=== PATIENT | female | born 1955 | race Caucasian/White ===

== ENCOUNTER → 2017-05-11 12:09 | Outpatient (CLI) | payer BC, MEDICARE, SELFPAY ==
--- NOTE | 2017-05-11 13:00 | MM_ITS ---
MM Dig screening mamm BI w/CAD CAD Screening COMPARISON: Digital mammograms 01/28/2016 and additional views right breast 02/13/2016 and digital right mammogram 10/25/2016 INDICATION: There is a history of breast cancer patient's paternal aunt diagnosed after menopause. TECHNIQUE: Standard CC and MLO images were obtained. R2 CAD reviewed. FINDINGS: Moderate heterogenic fibroglandular densities are seen in the central portions of both breast. Previous ultrasound examinations of each breast and shown multiple cystic lesions. The dominant cystic lesion at approximately 1:00 position right breast seen on the previous exam October 2016 has shown interval decrease in size. There is a persistent density just deep to the nipple the right breast which was noted previously and this may have shown interval increase in size. There is a benign-appearing calcification left breast. There are no suspicious microcalcifications. Ultrasound right breast was performed same date confirming interval decrease in size of the septated cyst near the 1:00 position near the nipple. There are several other benign-appearing cyst within the breast along with a normal-appearing node in the axilla. IMPRESSION: Heterogenic breast density consistent with fibrocystic change with interval decrease in size of the dominant cyst right breast recommend the patient continue with yearly screening mammography BI-RADS Category: 2 Benign Finding(s) RECOMMENDED FOLLOW-UP: 1YR - 1 YEAR FOLLOW-UP (A letter has been sent to the patient regarding results of the study.)
--- NOTE | 2017-05-11 14:00 | US_ITS ---
US breast RT complete COMPARISON: Ultrasound right breast 10/25/2016 HISTORY: Follow-up known cystic lesions TECHNIQUE: Targeted ultrasound right breast FINDINGS: The oval cystic lesion with partial septation near the 1:00 position has shown interval decrease in size compared to the previous exam now measuring 0.9 0.8 x 0.5 cm. The other oval hypoechoic cystic lesion at the 9 to 10:00 position again shows some internal echoes likely debris measures 0.7 x 0.3 0.5 cm basically unchanged in size and appearance from previous exam. There is a tiny oval hypoechoic cystic lesion at the 11:00 position measuring 0.6 by point to 5.5 cm. There is a benign-appearing cystic lesion just deep to the nipple corresponding in size and location to the density seen on the mammogram measuring 0.6 x 0.4 x 0.6 cm.. There is a normal-appearing node in the axilla. IMPRESSION: Diffuse heterogenic echogenicity consistent with fibrocystic change with cystic lesions as described and with no suspicious solid lesions identified. Recommend the patient continue with yearly screening mammography.
== END ==
PROVIDERS: Family Provider Family Medicine; PCP Family Medicine; Visit Provider Family Medicine
DX: N60.01 Solitary cyst of right breast (principal); Z12.31 Encounter for screening mammogram for malignant neoplasm of breast
CPT/HCPCS: 76641; 77067

== ENCOUNTER → 2017-11-14 12:12 | Outpatient (CLI) | payer BC, MEDICARE, SELFPAY | PROVIDERS: PCP Family Medicine; Visit Provider Family Medicine | DX: R55 Syncope and collapse (principal) | CPT/HCPCS: 93225; 93226 ==

== ENCOUNTER → 2017-11-15 13:20 | Outpatient (CLI) | payer BC, MEDICARE, SELFPAY ==
[2017-11-15 17:00] LABS: Blood Urea Nitrogen 11 mg/dL (7-18); Estimated Glomerular Filt Rate 46 ml/min (>60); GFR (African American) 55 ML/MIN (>60)
== END ==
PROVIDERS: PCP Family Medicine; Visit Provider Family Medicine
DX: D35.2 Benign neoplasm of pituitary gland (principal)
CPT/HCPCS: 36415; 82565; 84520

== ENCOUNTER → 2017-11-18 07:58 | Outpatient (CLI) | payer BC, MEDICARE, SELFPAY ==
--- NOTE | 2017-11-18 08:36 | MR_ITS ---
MR head/brain wo/w con Ordering Physician: Rita Arevalo MD Patient Age: 62 years: Female HISTORY: ITS.REASON: PITUITARY MICROADENOMA TECHNIQUE pre and postcontrast imaging of brain.. Routine Precontrast multiplanar imaging includes FLAIR, T1, T2 weighted images along with axial diffusion/ADC imaging performed on 1.5 T. Siemens, MRI. Thin sections through the pituitary following dynamic contrast enhancement. The provide excellent visualization of pituitary. Thereafter Postcontrast imaging entire brain performed.. 13mL ProHance used for the postcontrast images . COMPARISON :MRI brain including pituitary thin sections; from Dec 2016 & Apr 2016 FINDINGS no no mass lesion We again see view a few scattered small high signal white matter foci cerebral hemispheres bilateral. These are not changed appreciably since December nor April 2016 MR brain.. no territorial infarct. The posterior fossa appears satisfactory. CP angles are clear. IACs symmetric with cranial nerve VII and VIII appear normal as it courses to the respective IACs. Mastoid air cells are well-developed and clear. Paranasal sinuses are well-developed with only some borderline mucosal thickening at ethmoid air cells. Dynamic thin section coronal and sagittal images are obtained of the pituitary pre and postcontrast Pituitary shows no discrete change since previous 2017 studies.. These detail images Pituitary Thin section pre& post enhanced images, once again showing an mildly enlarged pituitary gland measuring up to 15 mm transverse X9 .7 mm height X9 mm AP measurement unchanged since previous exam measured from same spot. . Mild convex superior margin of the pituitary gland is again noted and stable;.. The central aspect of upward bulging pituitary abuts the infra aspect of theoptic chiasm and medial aspect and proximal aspect of the optic nervesbilaterally without significant displacement and with no significant change. Again note two small stable area of decreased enhancement at posterior aspect pituitary gland on the dynamic thin section post contrast images specifically for pituitary.. The most evident microadenoma is seen posterior to the left Measuring 4 mm transverse x 2.2 mm... Also note a second small 2 mm less enhancing focus/microadenoma at midline posteriorly slightly more superior which reflect either a second tiny microadenoma, or dogleg extension of the area noted above. These this is best seen on dynamic postcontrast thin section coronal image 4/sagittal postcontrast image 7..These microadenomas show no definite change since Apr 2016. (The detail and resolution of these small macro adenomas was better on the Apr 2016 study, than December-thus used for comparison) . On this thin section coronal image 4 initially question more evident microadenoma to the left at posterior pituitary could be possibly subtle incrementally larger but this is not confirmed on other images and thus I believe is merely a feature of slightly different slice location/sampling. However I would recommend again follow-up in 9 months to again further evaluate particularly if there should be any progressive symptoms Paranasal sinuses are clear. Orbits unremarkable IMPRESSION : 1. Overall no significant change in the mildly enlarged pituitary and two small stable microadenomas at posterior pituitary. . microadenoma Posterior left pituitary measuring up to 4 mm; & the other at midline measuring 2.2 mm. .. No definitive change since since Apr 2016 The mildly enlarged pituitary does bulge upward & again seen to slightly abut the inferior aspect of the optic chiasm & proximal aspect of the optic nerves medially as before.. This is unchanged as well 2.. Stable scattered white matter high signal foci most likely due to microan
--- NOTE | 2017-11-18 10:13 | HMH.ITSHM ---
TOPIRAMATE LORAZEPAM TROKENDI HYDROCHLOROTHIAZIDE-TRIAMTERENE METOPROLOL SUCCINATE POTASSIUM CHLORIDE PLVIX ALENDRONATE SUMATRIPTAN TIZANIDINE MYRBETRIQ
== END ==
PROVIDERS: Family Provider Family Medicine; PCP Family Medicine; Visit Provider Family Medicine
DX: D35.2 Benign neoplasm of pituitary gland (principal)
CPT/HCPCS: 70553; A9576

== ENCOUNTER → 2017-11-29 14:15 | Outpatient (CLI) | payer BC, MEDICARE, SELFPAY | PROVIDERS: PCP Family Medicine; Visit Provider Nurse Practitioner Family | DX: Z11.9 Encounter for screening for infectious and parasitic diseases, unspecified (principal); W57.XXXD Bitten or stung by nonvenomous insect and other nonvenomous arthropods, subsequent encounter | CPT/HCPCS: 36415; 86618 ==

== ENCOUNTER → 2017-12-19 07:32 | Outpatient (CLI) | payer BC, MEDICARE, SELFPAY ==
--- NOTE | 2017-12-19 07:33 | CA_ITS ---
PROCEDURE: 2-D M-mode and color Doppler study INDICATIONS FOR THE TEST: Chest pain+ COPD Heart Murmur Tobacco Smoking+ Palpitations+ Fatigue+ Syncope+ Edema Hypertension+Diabetes Mellitus Rheumatic Fever SOB+MARTINEZ+Obesity Hyperlipidemia Family History HD+ Additional History dizziness, hx of TIA PATIENT INFORMATION HEIGHT: 63 WEIGHT: 144 GENDER: Female B/P:149/83 2-D/M-MODE INTERPRETATION: 2-D MEASUREMENTS OBSERVED VALUES IN CMS Right Ventricular Dimension (RVDd) 2.2 Interventricular Septum (Thickness)(IVsd) 0.7 Left Ventricular Internal Dimensions(LVIDd) 3.0 Left Ventricular Posterior Wall (Thickness)(LVPWd) 0.8 Aortic Root 2.6 Aortic Cusp Separation 1.7 Left Atrial Dimensions (LAD) 3.0 2D 1. Left atrium is qualitatively mildly enlarged, left ventricle is normal size, there is no concentric left ventricular hypertrophy, visually estimated ejection fraction 55% with no regional wall motion abnormality. 2. The right atrium and right ventricle are normal size and contractility. 3. The aortic valve is minimally thickened and fibrosed. 4. The mitral and tricuspid valve are grossly normal. 5. The pulmonic valve is poorly visualized. 6. No significant pericardial effusion noted. DOPPLER INTERROGATION: Doppler interrogation of the aortic, mitral and tricuspid valvular presence of mild mitral and tricuspid regurgitation, tricuspid regurgitation jet velocity is insufficient for calculation of the right ventricular systolic pressure, grade 1 diastolic dysfunction seen without tissue Doppler evidence of raised left atrial pressure. CONCLUSION: 1. Normal left ventricular size, preserved left ventricular systolic function, visually estimated ejection fraction of 55% with no regional wall motion abnormality, grade 1 diastolic dysfunction seen without tissue Doppler evidence of raised left atrial pressure. 2. Mild mitral and tricuspid regurgitation 3. No significant pericardial effusion noted.
--- NOTE | 2017-12-19 07:33 | CI_ITS ---
Cerebrovascular Exam Indications: 785.9 Bruit. IMPRESSIONS 1. The bilateral vertebral arteries are patent with normal antegrade flow. 2. Study suggests less than 20% stenosis involving the right internal carotid artery and the left internal carotid artery. No change from the study of 26-Feb-2013. Carotid duplex study. Complete study and Doppler flow study including spectral analysis, color and gomez scale imaging. Location: Vascular laboratory. Patient status: Outpatient. Tables: Arterial flow: + +--------+--------+ Location V sys V ed + +--------+--------+ Right CCA - proximal 78.6cm/s 24.4cm/s + +--------+--------+ Right CCA - distal 62.9cm/s 21.2cm/s + +--------+--------+ Right ECA 71.5cm/s -------- + +--------+--------+ Right ICA - proximal 62.9cm/s 25.1cm/s + +--------+--------+ Right ICA - mid 72.3cm/s 29.1cm/s + +--------+--------+ Right ICA - distal 79.4cm/s 36.9cm/s + +--------+--------+ Right vertebral 38.5cm/s -------- + +--------+--------+ Left CCA - proximal 85.6cm/s 30.6cm/s + +--------+--------+ Left CCA - distal 64.4cm/s 19.6cm/s + +--------+--------+ Left ECA 51.1cm/s -------- + +--------+--------+ Left ICA - proximal 51.9cm/s 23.6cm/s + +--------+--------+ Left ICA - mid 57.4cm/s 25.1cm/s + +--------+--------+ Left ICA - distal 53.4cm/s 22.8cm/s + +--------+--------+ Left vertebral 38.5cm/s -------- + +--------+--------+ Velocity ratios: + + + + + + Right, V sys Right, V ed Left, V sys Left, V ed + + + + + + Max ICA/dist CCA 1.26 1.74 0.89 1.28 + + + + + + (Report amended ) Electronically signed by: Henry Pinto [id number]
== END ==
PROVIDERS: Family Provider Family Medicine; PCP Family Medicine; Visit Provider Internal Medicine
DX: R42 Dizziness and giddiness (principal); Z86.73 Personal history of transient ischemic attack (TIA), and cerebral infarction without residual deficits; D35.2 Benign neoplasm of pituitary gland; I10 Essential (primary) hypertension; I20.9 Angina pectoris, unspecified; I95.9 Hypotension, unspecified; R00.2 Palpitations; R06.09 Other forms of dyspnea; R55 Syncope and collapse; R94.31 Abnormal electrocardiogram [ECG] [EKG]
CPT/HCPCS: 93306; 93880

== ENCOUNTER → 2018-03-31 11:08 | Outpatient (CLI) | payer BC, MEDICARE, SELFPAY ==
[2018-03-31 13:32] LABS: C-Reactive Protein < 0.2 mg/L (0.0-0.9)
[2018-03-31 13:58] LABS: Erythrocyte Sedimentation Rate 10 mm/hr (0-30)
== END ==
PROVIDERS: PCP Family Medicine; Visit Provider Ophthalmology
DX: D35.2 Benign neoplasm of pituitary gland (principal)
CPT/HCPCS: 36415; 85651; 86140

== ENCOUNTER → 2018-05-15 08:16 | Outpatient (CLI) | payer BC, MEDICARE, SELFPAY ==
[2018-05-15 09:20] LABS: Blood Urea Nitrogen 17 mg/dL (7-18); Creatinine,Serum 1.09 mg/dL (0.55-1.02); Estimated Glomerular Filt Rate 51 ml/min (>60); GFR (African American) 62 ML/MIN (>60)
== END ==
PROVIDERS: Visit Provider Neurological Surgery
DX: R79.89 Other specified abnormal findings of blood chemistry (principal)
CPT/HCPCS: 36415; 82565; 84520

== ENCOUNTER → 2018-05-17 10:27 | Outpatient (CLI) | payer BC, MEDICARE, SELFPAY ==
--- NOTE | 2018-05-17 10:30 | MR_ITS ---
MR head/brain wo/w con HISTORY: Severe headaches, pituitary macroadenoma ITS.REASON: PITUITARY MACROADENOMA ORDERING PHYSICIAN: Ryan Burciaga PATIENT AGE: 63 years Comparison: 11/18/2017 TECHNIQUE: Standard multiplanar multiecho sequences are performed without and with 12 mL ProHance IV. FINDINGS: No midline shift, mass effect, intracranial hemorrhage, or hydrocephalus. No evidence of acute infarction. There are few T2 scattered white matter hyperintensities which are nonspecific consistent with ischemic gliotic change from microvascular disease. The cerebellopontine angles, cerebellum, and brainstem are unremarkable. Pre- and post dynamic thin section enhanced images are obtained of the pituitary gland. There is once again noted mildly enlarged pituitary gland 10 x 9 x 12 mm. Small area of delayed enhancement noted in the left lobe of the pituitary gland posteriorly and inferiorly at 4 mm consistent with a microadenoma unchanged. Additional 2 mm focus of delayed enhancement in the central aspect of the pituitary as before suggesting an additional small microadenoma unchanged. Large pituitary gland does of but the inferior aspect of the optic chiasm centrally without significant compression or displacement. Incidental note is made of mild mucosal thickening of the right maxillary sinus and of the ethmoid sinuses. IMPRESSION: 1. Overall no change with no acute finding compared to 11/18/2017. 2. Enlarged pituitary gland with 2 microadenomas once again noted unchanged. The pituitary gland does abut the optic chiasm centrally and inferiorly but without significant displacement or compression.
== END ==
PROVIDERS: PCP Family Medicine; Visit Provider Neurological Surgery
DX: D35.2 Benign neoplasm of pituitary gland (principal)
CPT/HCPCS: 70553; A9576

== ENCOUNTER → 2018-08-09 10:15 | Outpatient (CLI) | payer BC, MEDICARE, SELFPAY ==
--- NOTE | 2018-08-09 10:18 | MM_ITS ---
MM Dig screening mamm BI w/CAD ORDERING PHYSICIAN : Rita Arevalo MD PATIENT AGE: 63 years GENDER: Female COMPARISON: April 2017 ; January 2016 a But also March 2011 outside mammogram study from [place] INDICATION: .: Routine screening mammogram. Period. No hormones. No new complaints. Family history.. Paternal aunt with breast cancer TECHNIQUE: Standard CC and MLO images were obtained. R2 CAD reviewed. Additional axillary cc view right breast included FINDINGS: No new areas of concern either breast Stable asymmetric breast pattern. Slightly heterogeneous with areas of moderate density again seen bilaterally. Most important we see no change since last years study. The patient does have history of fibrocystic breasts from previous exams. RIGHT BREAST:No new areas of concern The previously generous cyst seen at the medial breast are no longer evident. Small area of density superiorly . Labeled B stable since studies dating back to 2011 Small areas nodularity laterally on previously labeled C is stable since at least 2015 . LEFT BREAST: Stable moderately dense fibroglandular elements at the superior breast and towards upper-outer quadrant. Stable appearance dates back to 2011 IMPRESSION: .... No significant new findings. Stable mammogram . Bilateral follow-up one year recommended. BI-RADS Category: 2 Benign Finding(s) RECOMMENDED FOLLOW-UP: 1YR 1 YEAR FOLLOW-UP (A letter has been sent to the patient regarding results of the study.)
== END ==
PROVIDERS: PCP Family Medicine; Visit Provider Family Medicine
DX: Z12.31 Encounter for screening mammogram for malignant neoplasm of breast (principal); N60.19 Diffuse cystic mastopathy of unspecified breast
CPT/HCPCS: 77067

== ENCOUNTER → 2019-11-02 08:20 | Outpatient (CLI) | payer BC, MEDICARE, SELFPAY ==
[2019-11-02 10:59] LABS: Alanine Aminotransferase 56 U/L (12-78); Albumin Level 5.2 g/dl (3.5-5.0); Alkaline Phosphatase 153 U/L (38-126); Anion Gap 22.1 mEq/L (5-15); Aspartate Amino Transferase 51 U/L (14-36); Bilirubin,Direct 0.3 mg/dl (0.0-0.4); Bilirubin,Indirect 0.5 mg/dL (0.0-0.9); Bilirubin,Total 0.8 mg/dl (0.2-1.3); Bilirubin,Unconjugated 0.5 mg/dL (0.0-1.1); Blood Urea Nitrogen 15 mg/dl (7-17); Calcium 10.3 mg/dl (8.4-10.2); Carbon Dioxide 23 mmol/L (22.0-30.0); Chloride 101 mmol/L (98-107); Chol/HDL Ratio 3.3 (1-3.5); Cholesterol 232 mg/dl (140-200); Estimated Glomerular Filt Rate 41 ml/min (>60); GFR (African American) 50 ML/MIN (>60); Glucose 120 mg/dl (74-100); HDL Cholesterol 70 mg/dl (40-60); Potassium 4.1 mmoL/L (3.5-5.1); Sodium 142 mmol/L (136-145); Total Protein,Serum 8.7 g/dl (6.3-8.2); Triglycerides 216 mg/dl (30-150); VLDL Cholesterol 43 mg/dL (0-40)
[2019-11-02 11:10] LABS: Direct LDL Cholesterol 122.14 mg/dL (100-129)
== END ==
PROVIDERS: Visit Provider Internal Medicine Cardiovascular Disease
DX: G45.9 Transient cerebral ischemic attack, unspecified (principal); I10 Essential (primary) hypertension; I77.9 Disorder of arteries and arterioles, unspecified
CPT/HCPCS: 36415; 80048; 80061; 80076; 83880

== ENCOUNTER → 2019-12-03 07:51 | Outpatient (CLI) | payer BC, MEDICARE, SELFPAY ==
[2019-12-03 10:17] LABS: Chloride 101 mmol/L (98-107)
[2019-12-03 10:18] LABS: Sodium 140 mmol/L (136-145)
[2019-12-03 10:20] LABS: Blood Urea Nitrogen 14 mg/dl (7-17); Estimated Glomerular Filt Rate 45 ml/min (>60); GFR (African American) 55 ML/MIN (>60)
[2019-12-03 10:21] LABS: Calcium 9.8 mg/dl (8.4-10.2); Carbon Dioxide 30 mmol/L (22.0-30.0); Glucose 118 mg/dl (74-100)
== END ==
PROVIDERS: Visit Provider Internal Medicine Cardiovascular Disease
DX: I10 Essential (primary) hypertension (principal); I51.89 Other ill-defined heart diseases
CPT/HCPCS: 36415; 80048

== ENCOUNTER → 2020-10-15 07:28 | Outpatient (CLI) | payer BC, MEDICARE, SELFPAY ==
[2020-10-15 07:46] LABS: Anion Gap 8.9 mEq/L (5-15); Blood Urea Nitrogen 12 mg/dl (7-17); Carbon Dioxide 28 mmol/L (22.0-30.0); Chloride 104 mmol/L (98-107); Estimated Glomerular Filt Rate 45 ml/min (>60); GFR (African American) 55 ML/MIN (>60); Glucose 107 mg/dl (74-100); Potassium 3.9 mmoL/L (3.5-5.1); Sodium 137 mmol/L (136-145)
--- NOTE | 2020-10-15 07:46 | MM_ITS ---
PROCEDURE INFORMATION: Exam: MG Screening 3D Mammography Exam date and time: 10/15/2020 7:46 AM Age: 65 years old Clinical indication: Encounter for screening mammogram for malignant neoplasm of breast TECHNIQUE: Imaging protocol: Screening tomosynthesis and 2D mammography including computer-aided detection (CAD) when performed. COMPARISON: 1. MG [facility] MM Dig screening mamm BI w/CAD 08/09/2018 10:24 AM 2. MG [facility] MM Dig screening mamm BI w/CAD 05/11/2017 1:11 PM FINDINGS: MAMMOGRAPHY: Breast composition: The breast tissue is heterogeneously dense, which may obscure small masses. Mass: None. Architectural distortion: None. Calcifications: No suspicious calcifications. Asymmetric density: None. Skin thickening: None. Axillary adenopathy: None. IMPRESSION: No mammographic evidence of malignancy. Annual screening is recommended unless otherwise clinically indicated. ASSESSMENT: BI-RADS Category 1: Negative
--- NOTE | 2020-10-15 07:47 | US_ITS ---
PROCEDURE: US EXTREMITY RT LIMITED CLINICAL INDICATION: RT ELBOW PAIN COMPARISON: No exams were available for comparison FINDINGS: General survey is performed of the anti cubital region right arm. No cyst or solid mass evident. No abnormal fluid collections. IMPRESSION: Unremarkable ultrasound of the right anti cubital region. Dictated by: Henry Pinto MD 10/15/2020 16:30 Henry Pinto MD in [place] 10/15/2020 16:30
--- NOTE | 2020-10-15 08:35 | XR_ITS ---
PROCEDURE: XR DEXA AXIAL SKELETON CLINICAL HISTORY: AGE RELATED OSTEOPOROSIS COMPARISON: CR,DX BONE3 BONE DENSITOMETRY(HIP:LT SPINE from 01/28/2016 FINDINGS: The right hip BMD is 0.644 with a T-score of -1.8. The left hip BMD is 0.561 with a T-score of -2.6. The lumbar spine BMD is 0.819 with a T-score of -2.1. Previously the lowest density was in the left femoral neck with a T-score of -2.7. IMPRESSION: This patient is considered osteoporotic according to the World Health Organization criteria. Fracture risk is high. Treatment is advised. Based on these results a follow-up exam is recommended in 1 year. Dictated by: Henry Pinto MD 10/16/2020 08:15 Henry Pinto MD in [place] 10/16/2020 08:15
--- NOTE | 2020-10-15 09:51 | MR_ITS ---
PROCEDURE: MR HEAD/BRAIN WO/W CON CLINICAL INDICATION: HX OF BRAIN TUMOR Enlarged pituitary with micro adenomas which were removed, follow-up COMPARISON: MR BRAINWW MR head/brain wo/w con from 05/17/2018 TECHNIQUE: Routine multiplanar multi echo sequences are performed without and with gadolinium enhancement. Dynamic thin-section post enhanced images are obtained of the pituitary. FINDINGS: No midline shift, mass effect, intracranial hemorrhage, or hydrocephalus. No restricted diffusion. The cerebellopontine angles, cerebellum, midbrain, and brainstem have an unremarkable appearance. No evidence of acute infarction. Scattered T2 white matter hyperintensities are present. Some of these white matter hyperintensities are slightly more prominent but overall do not appear significantly changed. They do not demonstrate contrast enhancement and are without surrounding edema The 2 previously noted micro adenomas in the pituitary are no longer apparent. The mass effect previously noted on the optic chiasm is no longer evident. There is a small 3 mm area which does not demonstrate contrast enhancement in the left aspect of the pituitary along the superior surface which may represent a micro adenoma which may been present previously probably unchanged. No enhancing lesions are apparent. The pituitary, optic chiasm, corpus callosum, and craniocervical junction have an unremarkable appearance. No mastoid effusion or sinus air-fluid level. IMPRESSION: Previously noted enlarged pituitary gland is now smaller with no mass effect upon the optic chiasm. The 2 previously mentioned micro adenomas are no longer apparent. There may be a small residual micro adenoma along the superior surface on the left at 3 mm. This is without mass effect and may be due to partial volume averaging artifact. Scattered T2 white matter hyperintensities suggesting ischemic gliotic change from microvascular disease. The Dictated by: Henry Pinto MD 10/15/2020 18:02 Henry Pinto MD in [place] 10/15/2020 18:02
== END ==
PROVIDERS: Physician Assistant; PCP Family Medicine; Visit Provider Family Medicine
DX: E87.5 Hyperkalemia (principal); Z12.31 Encounter for screening mammogram for malignant neoplasm of breast; M81.0 Age-related osteoporosis without current pathological fracture; M79.609 Pain in unspecified limb; R41.0 Disorientation, unspecified; R68.89 Other general symptoms and signs; Z86.018 Personal history of other benign neoplasm
CPT/HCPCS: 36415; 70553; 76882; 77063; 77067; 77080; 80048; A9576

== ENCOUNTER → 2020-12-16 08:54 | Outpatient (CLI) | payer BC, MEDICARE, SELFPAY ==
--- NOTE | 2020-12-16 08:54 | US_ITS ---
PROCEDURE: US ABD. AORTA SCREENING CLINICAL INDICATION: tobacco user COMPARISON: No exams were available for comparison FINDINGS: No evidence of abdominal aortic aneurysm. Proximal common iliacs have an unremarkable appearance. There is some mild calcific plaque within the aorta. IMPRESSION: Negative for abdominal aortic aneurysm Dictated by: Henry Pinto MD 12/16/2020 16:08 Henry Pinto MD in [place] 12/16/2020 16:08
--- NOTE | 2020-12-16 09:20 | CA_ITS ---
APPROVED REPORT Greaser And Oiler: CT Laterality: Bilateral Indications: vannessa PAPA Risk Factors Hypertension: TIA/CVA History Hyperlipidemia Smoking Doppler Spectral Velocity Analysis ECA (R) 96.30/ cm/s ECA (L) 81.30/ cm/s dICA (R) 82.80/30.20 cm/s dICA (L) 70.80/31.10 cm/s Rolo (R) 78.80/27.40 cm/s Rolo (L) 83.20/33.50 cm/s pICA (R) 79.60/27.60 cm/s pICA (L) 71.70/24.90 cm/s dCCA (R) 80.20/25.70 cm/s dCCA (L) 72.60/26.30 cm/s pCCA (R) 60.40/20.30 cm/s pCCA (L) 88.00/28.90 cm/s Vert (R) 45.35/13.00 cm/s Vert (L) 44.30/ cm/s ICA/CCA 1.00 ICA/CCA 1.20 Findings Duplex evaluation demonstrates stenosis of the right proximal internal carotid artery <20%. Duplex evaluation demonstrates stenosis of the left proximal internal carotid artery <20%. Duplex evaluation demonstrates antegrade flow of the bilateral Vertebral Arteries. Conclusion Duplex evaluation demonstrates stenosis of the right proximal internal carotid artery <20%. Duplex evaluation demonstrates stenosis of the left proximal internal carotid artery <20%. Duplex evaluation demonstrates antegrade flow of the bilateral Vertebral Arteries. Electronically signed by : Henry Pinto MD 12/16/2020 15:47:00
== END ==
PROVIDERS: PCP Family Medicine; Visit Provider Internal Medicine Cardiovascular Disease
DX: R06.00 Dyspnea, unspecified (principal); I65.23 Occlusion and stenosis of bilateral carotid arteries; D35.2 Benign neoplasm of pituitary gland; I10 Essential (primary) hypertension; F17.200 Nicotine dependence, unspecified, uncomplicated
CPT/HCPCS: 76705; 93880

== ENCOUNTER → 2021-11-05 12:27 | Outpatient (CLI) | payer MEDICARE, SELFPAY ==
--- NOTE | 2021-11-05 12:39 | MM_ITS ---
PROCEDURE INFORMATION: Exam: MG Bilateral Screening 3D Mammography Exam date and time: 11/05/2021 12:56 PM Age: 66 years old Clinical indication: Screening. Two sisters had breast cancer, one at age 52 and another at age 63. TECHNIQUE: Imaging protocol: Bilateral Screening tomosynthesis and 2D mammography including computer-aided detection (CAD) when performed. COMPARISON: 1. MG MM DIG SCREENING MAMM BI W/CAD 10/15/2020 8:06 AM 2. MG [facility]BI MM Dig screening mamm BI w/CAD 08/09/2018 10:24 AM 3. MG [facility] MM Dig screening mamm BI w/CAD 05/11/2017 1:11 PM 4. MG DMDXUR DIG MAMM-DX UNI-RT W/CAD 10/25/2016 1:14 PM COMPARISON MORE: OT SCREEN MAMMO BILAT DIG 04/20/2011 8:41 AM FINDINGS: MAMMOGRAPHY: Breast composition: The breasts are heterogeneously dense, which may obscure small masses. Mass: No suspicious mass. Architectural distortion: None. Calcifications: No suspicious calcifications. Asymmetric density: None. Skin thickening: None. Axillary adenopathy: None. IMPRESSION: No mammographic evidence of malignancy. Annual screening is recommended unless otherwise clinically indicated. Given the reported risk factors coupled with the patient's breast density, a breast cancer risk assessment may prove useful for further evaluation. ASSESSMENT: BI-RADS Category 1: Negative
== END ==
PROVIDERS: PCP Family Medicine; Visit Provider Family Medicine
DX: Z12.31 Encounter for screening mammogram for malignant neoplasm of breast (principal)
CPT/HCPCS: 77063; 77067

== ENCOUNTER → 2022-06-21 09:19 | Outpatient (CLI) | payer MEDICARE, SELFPAY ==
--- NOTE | 2022-06-21 10:13 | MR_ITS ---
FINAL REPORT CLINICAL HISTORY: BENIGN PITUITARY TUMOR. SURGERY TO REMOVE TUMOR 1 YEAR AGO. MIGRAINE HEADACHE, DIZZINESS AND BLURRED VISION. COMPARISON: 10/15/2020 FINDINGS: Multiplanar MR imaging of the brain was performed without and with contrast. The pituitary gland has a similar signal in configuration as compared to 10/15/2020. Mild heterogeneity in the gland is probably due to prior surgery. No definite mass is identified. The infundibulum lies midline. There is mild abnormal signal in the deep white matter bilaterally. There is no intracranial hemorrhage. No abnormal extra-axial fluid collection is seen. The ventricular size is within normal limits. There is no evidence of shift of the midline structures. The posterior fossa and brainstem have an unremarkable appearance. No area of abnormal restricted diffusion is identified. No abnormal contrast enhancement is seen. Normal major vessel vascular flow voids are noted. Significant air-fluid levels are seen in the left maxillary sinus. There is mild mucoperiosteal thickening in the ethmoid air cells consistent with chronic sinusitis. IMPRESSION: No definite mass is identified. Heterogeneity in the gland is probably due to prior surgery. Reviewed, Interpreted and Dictated by Peter Giraldo MD Transcribed by Kary Hartman Authenticated and [facility]
[2022-06-21 10:54] LABS: Blood Urea Nitrogen 12 mg/dl (7-17); Estimated Glomerular Filt Rate 41 ml/min (>60); GFR (African American) 50 ML/MIN (>60)
--- NOTE | 2022-06-21 12:04 | US_ITS ---
FINAL REPORT CLINICAL HISTORY: Right axillary mass FINDINGS: ULTRASOUND SOFT TISSUES OF THE RIGHT AXILLA Limited sonographic images of the soft tissues of the right axilla were obtained. There is a large, apparent, fatty region in the right axilla that cannot be fully imaged in the field of view. This is favored to represent a large lipoma. 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 CT is recommended to fully characterize. Reviewed, Interpreted and Dictated by Peter Giraldo MD Transcribed by Kary Hartman Authenticated and [facility]
== END ==
PROVIDERS: PCP Family Medicine; Visit Provider Family Medicine
DX: R41.3 Other amnesia (principal); R26.89 Other abnormalities of gait and mobility; G43.709 Chronic migraine without aura, not intractable, without status migrainosus; R22.31 Localized swelling, mass and lump, right upper limb; Z86.018 Personal history of other benign neoplasm
CPT/HCPCS: 36415; 70553; 76882; 82565; 84520; A9576

== ENCOUNTER → 2022-08-24 06:09 | Outpatient (CLI) | payer MEDICARE, SELFPAY ==
--- NOTE | 2022-08-24 06:13 | NM_ITS ---
APPROVED REPORT Exam: Nuclear Stress Test Indication: SOB, Fatigue, HTN, Tobacco use, Family history, Hx of PA Patient Location: Outpatient Stress Tech: Stacey Iniguez [place] Tech:Mya Cline, ARRT, RT (R)(N) Ht: 5 ft 3 in Wt: 168 lbs Bra Size: B HR: 61 bpm BP: 117/70 mmHg BSA: 1.80 m2 Rhythm: NSR TID: 1.06 BMI: 29.7 History: SOB, Fatigue, HTN, Tobacco use, Family history, Hx of PA Procedure: Patient received 0.4 mg of intravenous Lexiscan, resting heart rate 61 bpm, resting blood pressure 117/70 mmHg, with Lexiscan maximum heart rate achieved was 76 bpm which is 50 % of the maximum predicted heart rate and blood pressure was 127/67 mmHg. With Lexiscan, patient denied any complaint of chest pain. Cardiac Stress and Resting SPECT Images: Cardiac Stress and Resting SPECT images were obtained using technetium 99m Myoview 32.1 mCi stress and 10.07 mCi at rest. Resting and stress imaging in both supine and prone positions demonstrate a medium-sized, mild, fixed perfusion defect in mid to distal anterior and anteroseptal LV arshad. Gated imaging demonstrates normal global LV systolic function. There is mild to moderate hypokines in the distal anterior and anteroseptal LV wall. LVEF is calculated at 65%. Conclusion: Medium-sized, mild, fixed perfusion defect in mid to distal anterior and anteroseptal LV arshad. No evidence of reversible ischemia. Gated imaging demonstrates normal global LV systolic function. There is mild to moderate hypokines in the distal anterior and anteroseptal LV wall. LVEF is calculated at 65%. Electronically signed by : Jayna Trivedi, 08/25/2022 17:09:17
--- NOTE | 2022-08-24 08:16 | HMH.ITSHM ---
Current Home Medications as stated by this patient Davida Romero or service liaison representative. []TOPIRAMATE TIZANDINE SPIRONOLACTONE ROSUVASTATIN OMEPRAZOLE MIRABEGRON METOPROLOL LORAZEPAM HCTZ CLOPIDOGREL VITAMIN D3 AMTRIPTYLINE ALENDRONATE
--- NOTE | 2022-08-24 09:10 | CA_ITS ---
APPROVED REPORT Exam: Pharmacologic Technologist: Stacey Iniguez Ht: 5 ft 3 in Wt: 173 lbs BSA: 1.82 m2 HR: 60 bpm BP: 117/70 mmHg Rhythm: NSR Medical History Medications: Lorazepam,,,,, Omeprazole,,,,, Vitamin D3,,,,, HCTZ,,,,, TopIRAMATE,,,,, Plavix,,,,, AmiTRIPTYLINE,,,,, Tizanidine,,,,, Toprol XL,,,,, RoSUVASTATIN,,,,, SpirOnALACTONE,,,,, Alendronate,,,,, Stress Test Details Test: LEXISCAN HR Resting HR: 61 bpm Max Heart Rate (APMHR): 154 bpm Max HR Achieved: 76 bpm Target HR (85% APMHR): 131 bpm % of APMHR: 49 Recovery HR: 64 bpm BP Resting BP: 117.0/70.0 mmHg Max BP: 127.0/67.0 mmHg Recovery BP: 127.0/67.0 mmHg ECG Resting ECG: Normal sinus rhythm, first degree AV block Clinical Exercise duration: 04:02 min Highest Stage Achieved: Exercise capacity: n/a METs Stress ECG Conclusion Symptoms: Shortness of air, nausea, head discomfort. no chest pain Arrhythmias/Ectopy: None ST-T Changes: No significant ST wave changes Conclusion: Unremarkable Lexiscan stress. Myoview images reported separately. Test Summary REST . . . . . . . Resting REST 03:23 . . 61 . 117/ 70 . . Stage 1 01:00 . . 68 . . . . Stage 2 01:00 . . 74 . . . . Stage 3 01:00 . . 70 . 120/ 69 . . Stage 4 01:00 . . 68 . 118/ 71 . . Stage 4 01:02 . . 67 . 118/ 71 . Stop exercise at 04:02 RECOVERY 01:00 . . 71 . . . . RECOVERY 02:00 . . 66 . 126/ 74 . . RECOVERY 03:00 . . 67 . 126/ 74 . . RECOVERY 03:20 . . 64 . 127/ 67 . . Electronically signed by : Jayna Trivedi, 08/25/2022 17:01:40
== END ==
PROVIDERS: PCP Family Medicine; Visit Provider Nurse Practitioner
DX: R06.00 Dyspnea, unspecified; R07.89 Other chest pain; R42 Dizziness and giddiness; R60.9 Edema, unspecified; I10 Essential (primary) hypertension; I65.23 Occlusion and stenosis of bilateral carotid arteries; F17.200 Nicotine dependence, unspecified, uncomplicated; R40.0 Somnolence
CPT/HCPCS: 78452; 93017; 93306; A9502; J2785

== ENCOUNTER → 2023-01-10 08:57 | Outpatient (CLI) | payer MEDICARE, SELFPAY ==
--- NOTE | 2023-01-10 09:00 | US_ITS ---
FINAL REPORT CLINICAL HISTORY: CKD STAGE 3 COMPARISON: None FINDINGS: RENAL ULTRASOUND: The right kidney measures 9.25 cm in length, and the left kidney measures 9.21 cm in length. No evidence of renal mass, hydronephrosis, or perinephric fluid collections are seen. The spleen is unremarkable in appearance, and measures 7 cm in craniocaudal length. IMPRESSION: Unremarkable bilateral renal ultrasound. Reviewed, Interpreted and Dictated by Mukesh Brown III, MD Transcribed by Lashawn Shafer Authenticated and [facility]
== END ==
LOC: RAD 08:58
PROVIDERS: PCP Family Medicine; Visit Provider Family Medicine
DX: N18.32 Chronic kidney disease, stage 3b (principal)
CPT/HCPCS: 76770

== ENCOUNTER 2023-04-18 09:40 | Outpatient (CLI) | payer MEDICARE, SELFPAY ==
--- NOTE | 2023-04-18 09:44 | MM_ITS ---
PROCEDURE INFORMATION: Exam: MG Bilateral Screening 3D Mammography Exam date and time: 04/18/2023 10:14 AM Age: 68 years old Clinical indication: Screening. Two sisters had breast cancer, one at age 52 and another at age 63. Paternal aunt had breast cancer. TECHNIQUE: Imaging protocol: Bilateral Screening tomosynthesis and 2D mammography including computer-aided detection (CAD) when performed. COMPARISON: 1. MG MM DIG SCREENING MAMM BI W/CAD 11/05/2021 12:56 PM 2. MG MM DIG SCREENING MAMM BI W/CAD 10/15/2020 8:06 AM 3. MG SCBI MM Dig screening mamm BI w/CAD 08/09/2018 10:24 AM 4. MG SCBI MM Dig screening mamm BI w/CAD 05/11/2017 1:11 PM FINDINGS: MAMMOGRAPHY: Breast composition: The breasts are heterogeneously dense, which may obscure small masses. Mass: No suspicious mass. Architectural distortion: None. Calcifications: No suspicious calcifications. Asymmetric density: None. Skin thickening: None. Axillary adenopathy: None. IMPRESSION: No mammographic evidence of malignancy. Annual screening is recommended unless otherwise clinically indicated. Given the reported risk factors coupled with the patient's breast density, a breast cancer risk assessment may prove useful for further evaluation. ASSESSMENT: BI-RADS Category 1: Negative
== END 2023-04-18 23:59 ==
LOC: RAD 09:40
PROVIDERS: PCP Family Medicine; Visit Provider Family Medicine
DX: Z12.31 Encounter for screening mammogram for malignant neoplasm of breast (principal)
CPT/HCPCS: 77063; 77067

== ENCOUNTER 2023-11-29 09:03 | Outpatient (CLI) | payer MEDICARE, SELFPAY ==
--- NOTE | 2023-11-29 09:08 | XR_ITS ---
FINAL REPORT TECHNIQUE: Bone densitometry calculations of the lumbar spine and left hip were obtained. CLINICAL HISTORY: OSTEOPOROSIS COMPARISON: None FINDINGS: Using L1-4, the bone mineral density of the spine is 0.871 g/cm2, corresponding to T-score of -1.6, although this may be falsely elevated secondary to bony sclerosis. Using the left hip, the bone mineral density of the femoral neck is 0.620 g/cm2, corresponding to a T-score of -2.6. NOTE: T-score: Standard deviation compared with peak bone mass of young adult mean. *Following the recommendations of the International Society of Bone Densitometry, classification of hip BMD is based on the lower of two T-scores; total hip or femoral neck. IMPRESSION: Osteoporosis: Lowest T-score is at or below -2.5. This patient's T-score meets the World Health Organization criteria for osteoporosis. Reviewed, Interpreted and Dictated by Mukseh Brown III, MD Transcribed by Lashawn Shafer Authenticated and [facility]
== END 2023-11-29 23:59 | disposition home or self-care (01) ==
LOC: RAD 09:05
PROVIDERS: PCP Family Medicine; Visit Provider Family Medicine
DX: M81.0 Age-related osteoporosis without current pathological fracture (principal)
CPT/HCPCS: 77080

== ENCOUNTER 2025-02-06 07:45 | Outpatient (CLI) | payer MEDICARE, SELFPAY ==
--- NOTE | 2025-02-06 07:48 | XR_ITS ---
FINAL REPORT CLINICAL HISTORY: SCREENING COMPARISON: 11/29/2023 FINDINGS: Using L1-4, the bone mineral density of the spine is 0.779 g/cm2, corresponding to T-score of -2.4, consistent with osteopenia. Previously was 0.871 with a T-score of -1.6. Using the left hip, the bone mineral density of the femoral neck is 0.642 g/cm2, corresponding to a T-score of -1.9, consistent with osteopenia. Previously was 0.605 with a T-score of -2.2. Using the right hip, the bone mineral density of the femoral neck is 0.634 g/cm2, corresponding to a T-score of -1.9, consistent with osteopenia. Previously was 0.538 with a T-score -2.8. FRAX not reported because the patient is being treated for osteoporosis. NOTE: T-score: Standard deviation compared with peak bone mass of young adult mean. *Following the recommendations of the International Society of Bone densitometry, classification of hip BMD is based on the lower of two T-scores; total hip or femoral neck. IMPRESSION: Diminished bone mineral density consistent with osteopenia. Reviewed, Interpreted and Dictated by Peter Giraldo MD Transcribed by [place] Authenticated and [facility]
--- NOTE | 2025-02-06 07:48 | MM_ITS ---
PROCEDURE INFORMATION: Exam: MG Bilateral Screening 3D Mammography Exam date and time: 02/06/2025 7:55 AM Age: 70 years old Clinical indication: Screening examination TECHNIQUE: Imaging protocol: Bilateral Screening tomosynthesis and 2D mammography including computer-aided detection (CAD) when performed. COMPARISON: 1. MG MM DIG SCREENING MAMM BI W/CAD 04/18/2023 10:14 AM 2. MG MM DIG SCREENING MAMM BI W/CAD 11/05/2021 12:56 PM FINDINGS: MAMMOGRAPHY: Breast composition: The breasts are heterogeneously dense, which may obscure small masses. Mass: Questioned 0.6 cm mass in the upper inner left breast middle depth. Architectural distortion: None. Calcifications: No suspicious calcifications. Asymmetric density: None. Skin thickening: None. Axillary adenopathy: None. IMPRESSION: Questioned subcentimeter left breast mass. Recommend left breast diagnostic mammogram including spot compression views of the left breast in the CC and MLO projections, a full 90 degree lateral view, and left breast ultrasound for further evaluation. ASSESSMENT: BI-RADS Category 0: Incomplete- Need Additional Imaging Evaluation.
--- OUTSIDE RECORDS SUMMARY | 2025-02-06 08:18 | XMS_ITS | Clinical Summary ---
Author Organization Healthcare Address [address] [place] [address] Care Team Providers Care Mophead Sewer Name Role Phone Rakesh Arevalo MD Primary Care Provider [phone] Family History Medical History Relation Name Comments Brain Tumor Father Brain cancer Father Cataracts Father Glaucoma Father Macular degeneration Father Migraines Father Retinal detachment Father Diabetes Mother Seizures Mother Cataracts Paternal Grandfather Glaucoma Paternal Grandfather Macular degeneration Paternal Grandfather Retinal detachment Paternal Grandfather Relation Name Status Comments Father Mother Paternal Grandfather Social History Tobacco Use Types Packs/Day Years Used Date Smoking Tobacco: Every Day Alcohol Use Standard Drinks/Week Comments No 0 (1 standard drink = 0.6 oz pur e alcohol) Comments Unknown Sex and Gender Information Value Date Recorded Sex Assigned at Not on file Legal Sex Female 7:59 PM EDT Gender Identity Not on file Sexual Orientation Not on file Last Filed Vital Signs Vital Sign Reading Time Taken Comments Blood Pressure 141/78 08/24/2022 9:05 AM EDT Pulse 70 08/24/2022 9:05 AM EDT Temperature - - Respiratory Rate - - Oxygen Saturation - - Inhaled Oxygen Concentration - - Weight 78.5 kg (173 lb) 08/24/2022 9:05 AM EDT Height 160 cm (5' 3 ) 08/24/2022 9:05 AM EDT Body Mass Index 30.65 08/24/2022 9:05 AM EDT Plan of Treatment Health Maintenance Due Date Last Done Comments [facility]-Bone Density Scan 1956 [facility]-Depression Screening 1956 [facility]-/Child/Adol SDOH Screenings 1955 [facility]-Obesity Intervention 01/05/1962 [facility]- SDOH Screenings 01/05/1974 [facility]-Adult SDOH Screenings 01/05/1974 [facility]-DTaP,Tdap,and Td Vaccines (1 - Tdap) 01/05/1975 CT Colonography 01/05/2001 Colonoscopy 01/05/2001 FIT-DNA 01/05/2001 FIT 01/05/2001 FOBT 01/05/2001 Sigmoidoscopy 01/05/2001 [facility]-Colorectal Cancer Screening 01/05/2001 [facility]-Breast Cancer Screening 01/05/2006 [facility]-Zoster Vaccines (1 of 2) 01/05/2006 [facility]-Medicare Annual Wellness (AWV) 05/21/2023 05/20/2022, 12/24/2020, 12/21/2019 [id number] Vaccine ( season) 2024 07/18/2020, 06/27/2020 [facility]-Influenza Vaccine (#1) 11/19/202411/16, 12/24/2020, 12/21/2019, Additional history exists [facility]-RSV Vaccine: 60+ Years or (1 - 1-dose 75+ series) 01/05/2031 [facility]-Hepatitis C Screening Completed 07/09/2019, 12/2018 [facility]-Pneumococcal Vaccine: 50+ Years Completed 05/20/2022, 05/02/2017 HPV Vaccines Aged Out No longer eligi ble based on patient's age to complete this topic [facility]-HIB Vaccines Aged Out No longer e ligible based on patient's age to complete this topic [facility]-Hepatitis A Vaccines Aged Out No longer eligible based on patient's age to complete this topic [facility]-IPV Vaccines Aged Out No longer e ligible based on patient's age to complete this topic [facility]-Rotavirus Vaccines Aged Out No lo nger eligible based on patient's age to complete this topic Procedures Procedure Name Priority Date/Time Associated Diagnosis Comments HEPATITIS C ANTIBODY - ED W/REFLEX TO HCV QUANT PCR Routine 01/28/2019 3:59 PM EST from Last 3 Months or Most Recently Relevant to Health Maintenance Results * [place] Hepatitis C Antibody (01/28/2019 3:59 PM EST) Pathologist [facility] [place] Hepatitis C Ab NEGATIVE Reference Range: Negative SUNQUEST 01/28/2019 3:59 PM EST 01/28/2019 4:17 PM EST us Virgilio Mcgraw MD LAB BLOOD ORDERABLES Final Resul t SUNQUEST from Last 3 Months or Most Recently Relevant to Health Maintenance Insurance [facility]IC[facility] Care Teams Mophead Sewer Relationship Specialty Start Date End Date Rakesh Arevalo MD [address] [place] [address] PCP - General 08/01/20
== END 2025-02-06 23:59 | disposition home or self-care (01) ==
LOC: RAD 07:46
PROVIDERS: PCP Family Medicine; Visit Provider Family Medicine
DX: Z12.31 Encounter for screening mammogram for malignant neoplasm of breast (principal); R92.333 Mammographic heterogeneous density, bilateral breasts; R92.8 Other abnormal and inconclusive findings on diagnostic imaging of breast; M85.88 Other specified disorders of bone density and structure, other site
CPT/HCPCS: 77063; 77067; 77080

== ENCOUNTER 2025-03-01 13:55 | Outpatient (CLI) | payer MEDICARE, SELFPAY ==
--- NOTE | 2025-03-01 13:58 | MM_ITS ---
PROCEDURE INFORMATION: Exam: MG Left Diagnostic Breast Tomosynthesis Exam date and time: 03/01/2025 2:11 PM Age: 70 years old Clinical indication: Recall on the basis of screening mammogram 02/06/2025 questioned 0.6 cm mass in the upper inner left breast middle depth. TECHNIQUE: Imaging protocol: Left Diagnostic tomosynthesis and 2D mammography including computer-aided detection (CAD) when performed. Unilateral or bilateral exam. COMPARISON: 1. MG MM DIG SCREENING MAMM BI W/CAD 02/06/2025 7:55 AM 2. MG MM DIG SCREENING MAMM BI W/CAD 04/18/2023 10:14 AM 3. MG MM DIG SCREENING MAMM BI W/CAD 11/05/2021 12:56 PM FINDINGS: MAMMOGRAPHY: Breast composition: The breast is heterogeneously dense, which may obscure small masses. Density based on the most recent screening mammogram report. Breast mammogram findings: Spot compression shows several adjacent oval masses in the upper-inner quadrant which includes the recalled 0.6 cm mass which is the largest. IMPRESSION: Patient will be recalled for left sonography for further evaluation of several adjacent masses in the left upper inner quadrant middle depth. ASSESSMENT: BI-RADS Category 0: Incomplete: Need Additional Imaging Evaluation.
== END 2025-03-01 23:59 | disposition home or self-care (01) ==
LOC: RAD 13:55
PROVIDERS: PCP Family Medicine; Visit Provider Family Medicine
DX: N63.22 Unspecified lump in the left breast, upper inner quadrant (principal); R92.332 Mammographic heterogeneous density, left breast
CPT/HCPCS: 77061; 77065; G0279

== ENCOUNTER 2025-03-15 14:29 | Outpatient (CLI) | payer MEDICARE, SELFPAY ==
--- NOTE | 2025-03-15 14:32 | US_ITS ---
PROCEDURE INFORMATION: Exam: US Left Breast, Complete Exam date and time: 03/15/2025 2:46 PM Age: 70 years old Clinical indication: Patient recalled for further evaluation of left breast nodularity TECHNIQUE: Imaging protocol: Complete ultrasound of all four quadrants of the left breast and the retroareolar regions, including ultrasound of the axilla when performed. COMPARISON: MG MM DIG MAMM DX UNILAT LT CAD 03/01/2025 2:11 PM FINDINGS: ULTRASOUND: Breast ultrasound findings: Sonographic images of the left breast including the retroareolar region, all 4 quadrants and the axilla do not demonstrate any solid masses. Scattered subcentimeter cysts are present corresponding to the nodular tissue on mammography. No architectural distortion or acoustical shadowing. No skin thickening or axillary adenopathy. IMPRESSION: Masses on screening mammography correspond to underlying benign cystic change. No sonographic evidence of malignancy. Annual mammographic screening is recommended unless otherwise clinically indicated. ASSESSMENT: BI-RADS Category 2: Benign.
--- OUTSIDE RECORDS SUMMARY | 2025-03-15 14:32 | XMS_ITS | Encounter Summary ---
Author Organization [facility] yste Address [address] [place] [address] Care Team Providers Care Floor Grinder Name Role Phone Lucrecia Robert DO Primary Care Provider Encounter Details Date Type Department Care Team (Late st Contact Info) Description 12/19/2018 Telephone [facility] [address] [facility] [place] [address] Lucrecia Robert DO [address] [place] [address] Social History Tobacco Use Types Packs/Day Years Used Date Smoking Tobacco: Every Day Cigarettes 0.3 47 Smokeless Tobacco: Never Comments:pt trying to quit Alcohol Use Standard Drinks/Week Comments No 0 (1 standard drink = 0.6 oz pur e alcohol) AUDIT-C Answer Date Recorded Frequency of Alcohol Consumption Never 05/11/2018 Average Number of Drinks Not on file 019 Frequency of Binge Drinking Not on file 04/22 PHQ-2 Answer Date Recorded PHQ-2 Score 0 11/09/2018 Comments No Sex and Gender Information Value Date Recorded Sex Assigned at Not on file Legal Sex Female 8:39 AM EST Gender Identity Not on file Sexual Orientation Not on file documented as of this encounter Plan of Treatment Upcoming Encounters Date Type Department Care Team (Late st Contact Info) Description 06/10/2025 8:30 AM EDT Office Visit [facility] [address] [place], [place] [phone] Lucrecia Robert DO [address], [place] [address] 12/12/2025 9:00 AM EDT Office Visit [facility] [address] [place], [place] [address] Lucrecia Robert DO [address] [place] [address] documented as of this encounter Visit Diagnoses Not on filedocumented in this encounter Care Teams Floor Grinder Relationship Specialty Start Date End Date Lucrecia Robert DO [address] [place] [address] PCP - General Family Medicine 11/09/18 documented as of this encounter
--- OUTSIDE RECORDS SUMMARY | 2025-03-15 14:32 | XMS_ITS | Clinical Summary ---
[facility] Address [address] [place] [address] Care Team Providers Care Petal Shaper Hand Name Role Phone JakobLucrecia beyer Davida WIN Primary Care Provider Allergies Active Allergy Reactions Criticality Noted Date Comments Codeine Hives Low 01/26/2018 Penicillins Hives Low 01/26/2018 Medications metoprolol succinate XL (TOPROL-XL) 100 MG 24 hr tablet Take 1 tablet by mouth Every Morning. 0 01/24/20 18 Active Milk Thistle 175 MG capsule Take by mouth. Active NON FORMULARY [place] BEETS Active clopidogrel (PLAVIX) 75 MG tabletIndication s:History of CVA (cerebrovascular accident) Take 1 tablet by mouth Daily. 90 tablet 3 11/23/19 24 Active hydroCHLOROthiaz elisabet 25 MG tabletIndication s:Essential hypertension Take 1 tablet by mouth Daily. 90 tablet 3 11/23/19 24 Active topiramate (TOPAMAX) 25 MG tabletIndication s:Chronic migraine without aura without status migrainosus, not intractable TAKE 1 TABLET BY MOUTH DAILY 90 tablet 3 08/16/19 25 Active rosuvastatin (CRESTOR) 20 MG tabletIndication s:High cholesterol Take 1 tablet by mouth Every Night. 90 tablet 3 10/30/19 25 Active ibandronate (Boniva) 150 MG tabletIndication s:Age-related osteoporosis without current pathological fracture Take 1 tablet by mouth Every 30 (Thirty) Days. 3 tablet 3 12/11/19 25 Active pantoprazole (PROTONIX) 40 MG EC tabletIndication s:Gastroesophage al reflux disease, unspecified whether esophagitis present Take 1 tablet by mouth Daily. 90 tablet 3 12/11/19 25 Active amitriptyline (ELAVIL) 50 MG tabletIndication s:Chronic migraine without aura without status migrainosus, not intractable Take 1 tablet by mouth Every Night. 90 tablet 1 02/05/20 25 Active spironolactone (ALDACTONE) 25 MG tabletIndication s:Essential hypertension Take 1 tablet by mouth Daily. 90 tablet 3 02/07/20 25 Active LORazepam (ATIVAN) 0.5 MG tabletIndication s:Anxiety TAKE 1 TABLET BY MOUTH EVERY 8 HOURS NEEDED FOR ANXIETY 30 tablet 2 03/11/20 25 Active LORazepam (ATIVAN) 0.5 MG tabletIndication s:Anxiety Take 1 tablet by mouth Every 8 (Eight) Hours As Needed for Anxiety. for anxiety 30 tablet 2 12/11/19 25 025 Discontinued Active Problems Problem Noted Date Diagnosed Date Hyponatremia 10/31/2018 Pituitary macroadenoma 10/03/2018 Overview (10/03/2018): Added automatically from request for surgery [id number] Visual field defect 01/26/2018 Encounters Date Type Department Care Team Description 03/11/2025 Refill [facility] [address] [place] [address] Lucrecia Robert, DO Anxiety 03/06/2025 Results Follow-Up [facility] [address] [place] [address] Lucrecia Robert, 02/24/2025 Results Follow-Up [facility] [address] [place] [address] Lucrecia Robert, 02/24/2025 Results Follow-Up [facility] [address] [place] [address] JakobLucrecia beyer DO 02/06/2025 Refill [facility] [address] [place] [address] Lucrecia Robert DO Essential hypertension 02/04/2025 Telephone [facility] [address] [place] [address] Lucrecia Robert DO 12/18/2024 Results Follow-Up [facility] [address] [place] [address] Lucrecia Robert, from Last 3 Months Immunizations Immunization Administration Dates Next Due 31-influenza Vac Quardvalent Preservativ 016,02/03/2015 ABRYSVO (RSV, 60+ or pregnan t women 32-36 wks) 07/04/2024 COVID-19 (Gifi) Purple Cap Monovalent 07/19/19 21,06/27/2020 Flu Vaccine Intradermal Quad 18-64YR 01/03/2019 Flucelvax Quad Vial =>4yrs 01/03/2019 Fluzone (or Fluarix & Flulav al for VFC) >6mos 12/24/2020,12/21/2019 Fluzone High-Dose 65+yrs 11/16/2021 Fluzone Quad >6mos (Multi-dose) 05/02/2017 Influenza Seasonal Injectable 04/18/2014 Pneumococcal Conjugate 13-Valent (PCV13) 015 Pneumococcal Conjugate 20-Valent (PCV20) 025,05/20/2022 Pneumococcal Polysaccharide (PPSV23) 05/02/2017, 05/02/2017,01/21/2016 Tdap 01/21/2016 Family History Medical History Relation Name Comments Hyperlipidemia Father Stroke Father Diabetes Mother Hyperlipidemia Mother Neuropathy Mother Seizures Mother Relation Name Status Comments Father Mother Social History Tobacco Use Types Packs/Day Years Used Date Smoking Tobacco: Every Day Cigarettes 0.3 47 Smokeless Tobacco: Never Tobacco Cessation:Ready to Q uit: Not Asked; Counseling Given: Not Answered Comments:pt trying to quit Alcohol Use Standard Drinks/Week Comments No 0 (1 standard drink = 0.6 oz pur e alcohol) AUDIT-C Answer Date Recorded Frequency of Alcohol Consumption Never 05/11/2018 Average Number of Drinks Not on file 019 Frequency of Binge Drinking Not on file 04/22 PHQ-2 Answer Date Recorded Retired PHQ-9: Brief Depression Severity Measure Score 0 12/10/2022 PHQ-2 Answer Date Recorded Patient Health Questionnaire-2 Score 0 12/10/2024 Comments No Sex and Gender Information Value Date Recorded Sex Assigned at Not on file Legal Sex Female 8:39 AM EST Gender Identity Not on file Sexual Orientation Not on file Last Filed Vital Signs Vital Sign Reading Time Taken Comments Blood Pressure 112/72 12/10/2024 8:04 AM EDT Pulse 65 12/10/2024 8:04 AM EDT Temperature 36.3 C (97.3 F) 12/10/2024 8:04 AM EDT Respiratory Rate 18 12/10/2024 8:04 AM EDT Oxygen Saturation 93% 12/10/2024 8:04 AM EDT Inhaled Oxygen Concentration - - Weight 75.9 kg (167 lb 6.4 oz) 12/10/2024 8:04 A M EDT Height 160 cm (5' 3 ) 12/10/2024 8:04 AM EDT Body Mass Index 29.65 12/10/2024 8:04 AM EDT Plan of Treatment Upcoming Encounters Date Type Department Care Team (Late st Contact Info) Description 06/10/2025 8:30 AM EDT Office Visit [facility] [address] [place] [address] Lucrecia Robert, [address] [place] [address] 12/12/2025 9:00 AM EDT Office Visit [facility] [address] [place] [address] Lucrecia Robert DO [address] [place] [address] Health Maintenance Due Date Last Done Comments COLOGUARD 01/05/2001 COLON CANCER SCREENING 5 YEA R SIGMOIDOSCOPY 01/05/2001 CT COLONOGRAPHY 01/05/2001 FECAL OCCULT BLOOD TEST 01/05/2001 FIT Testing (1 year) 01/05/2001 ZOSTER VACCINE (1 of 2) 01/05/2006 COVID-19 Vaccine (3 - Pfizer risk series) 08/15/2020 07/18/2020, 06/27/2020 INFLUENZA VACCINE 10/19/2024 11/16/2021, , 12/21/2019, Additional history exists ANNUAL WELLNESS VISIT 12/10/2025 12/10/2024 , 12/10/2024, 05/23/2023, Additional history exists LIPID PANEL 12/10/2025 12/10/2024, 06/2023, 05/23/2023, Additional history exists TDAP/TD VACCINES (2 - Td or Tdap) 01/20/2026 016 COLONOSCOPY 03/21/2026 03/21/2016 COLORECTAL CANCER SCREENING 03/21/2026 DXA SCAN 02/06/2027 02/06/2025, 01/19, 10/15/2020, Additional history exists MAMMOGRAM 03/01/2027 03/01/2025, 01/19, 02/06/2025, Additional history exists HEPATITIS C SCREENING Completed 07/09/2019 Pneumococcal Vaccine 50+ Completed 025, 05/20/2022, 05/02/2017, Additional history exists Medical Devices Explanted Type Area Mate Relief Device Identifier Shelf Expiration Date Model / Serial / Lot Cath Csf Ext Edm Lumb W/Ba 80cm - [id number] Explanted:Qty: 1 on 10/19/2018 by Ryan Burciaga MD at [facility] Implant N/A: Back [employer] 04/20/2023 [id number] / / [id number] Description:Removed tube Procedures Procedure Name Priority Date/Time Associated Diagnosis Comments SCANNED - MAMMO 03/01/2025 MAMMO DIAGNOSTIC DIGITAL TOMOSYNTHESIS LEFT W CAD Routine 02/06/2025 Abnormality of left breast on screening mammogram SCANNED - DEXA 02/06/2025 MAMMO SCREENING DIGITAL TOMOSYNTHESIS BILATERAL W CAD Routine 02/06/2025 Encounter for screening mammogram for malignant neoplasm of breast LIPID PANEL W/ CHOL/HDL RATIO Routine 12/10/2024 8:40 AM EDT Medicare annual wellness visit, subsequent Essential hypertension High cholesterol Anxiety Vitamin D deficiency Gastroesophageal reflux disease, unspecified whether esophagitis present HEPATITIS C ANTIBODY Routine 07/09/2019 10:57 AM EDT Need for hepatitis C screening test SCANNED - INFLUENZA 01/03/2019 from Last 3 Months or Most Recently Relevant to Health Maintenance Results * MAMMO Scan (03/01/2025) Anatomical Region Laterality Modality Other Lucrecia Robert DO CHART REVIEW TABS Final Result * DEXA Scan (02/06/2025) Anatomical Region Laterality Modality Other Lucrecia Robert DO CHART REVIEW TABS Final Result * Mammo Screening Digital Tomosynthesis Bilateral With CAD (02/06/2025) Anatomical Region Laterality Modality Breast N/A Mammography Lucrecia Robert DO [facility] MAMMOGRAP[facility] ORDERABLES Final Result * Mammo Diagnostic Digital Tomosynthesis Left With CAD (02/06/2025) Anatomical Region Laterality Modality Breast Left Mammography Lucrecia Robert DO [facility] MAMMOGRAPHY ORDERABLES Final Result * (ABNORMAL) Lipid Panel With / Chol / HDL Ratio (12/10/2024 8:40 AM EDT) Total Cholesterol 149 0 - 200 mg/dL [facility] Comment: Cholesterol Reference Ranges (U.S. Department of Health and Human Services ATP III Classifications) Desirable <200 mg/dL Borderline High 200-239 mg/dL High Risk >240 mg/dL Triglyceride Reference Ranges (U.S. Department of Health and Human Services ATP III Classifications) Normal <150 mg/dL Borderline High 150-199 mg/dL High 200-499 mg/dL Very High >500 mg/dL HDL Reference Ranges (U.S. Department of Health and Human Services ATP III Classifications) Low <40 mg/dl (major risk factor for CHD) High >60 mg/dl ('negative' risk factor for CHD) LDL Reference Ranges (U.S. Department of Health and Human Services ATP III Classifications) Optimal <100 mg/dL Near Optimal 100-129 mg/dL Borderline High 130-159 mg/dL High 160-189 mg/dL Very High >189 mg/dL LDL is calculated using the NIH LDL-C calculation. Triglycerides 258(H) 0 - 150 mg/dL [facility] HDL Cholesterol 40 40 - 60 mg/dL [facility] VLDL Cholesterol Anibal 42(H) 5 - 40 mg/dL [facility] LDL Chol Calc ([facility]) 67 0 - 100 mg/dL [facility] Chol/HDL Ratio 3.73 [facility] Blood 12/10/2024 8:40 AM EDT 12/10/2024 Narrative [facility] ([facility]) - 12/11/2024 3:07 AM EDT Performed at: [address] [place] [id number] Sales Engineer Account Manager: Jun Jeffers MD, Phone: [phone] Patient Fasting: Y Lucrecia Robert DO LAB BLOOD ORDERABLES Final Result Performing Organization Address City/State/[facility] Co de Phone Number [facility] ([facility]) [address] [place] [address], [facility] [address] [place] [address], * Hepatitis C Antibody (07/09/2019 10:57 AM EDT) [facility] Hep C Virus Ab <0.1 0.0 - 0.9 s/co ratio [facility] Comment: Negative: < 0.8 Indeterminate: 0.8 - 0.9 Positive: > 0.9 The CDC recommends that a positive HCV antibody result be followed up with a HCV Nucleic Acid Amplification test (120116). Blood 07/09/2019 10:5 7 AM EDT 07/09/2019 Narrative [facility] [place] ([facility]) - 07/10/2019 6:07 AM EDT Performed at: 02 - [facility] [address] [place], [place] [id number] Sales Engineer Account Manager: Kaiser Cervantes PhD, Phone: [phone] Patient Fasting: N Lucrecia Robert DO LAB BLOOD ORDERABLES Final Result [facility] (AMBULATORY) [address] [place] [address], [facility] [address] [place] [address], * SCANNED - INFLUENZA (01/03/2019) [facility] CHART REVIEW TABS Final Re sult from Last 3 Months or Most Recently Relevant to Health Maintenance Insurance [facility] MEDICARE ADVANTAGE [facility] MEDICARE ADVANTAGE PPO Advance Directives * CPR (Attempt to Resuscitate) (Latest Code Status on File) Date Activated Date Inactivated Comments 10/31/2018 3:05 PM 11/04/2018 2:20 PM Question Answer Comments Code Status (Patient has no pulse and is not breathing): CPR (Attempt to Resuscitate) Medical Interventions (Patie nt has pulse or is breathing): Full Level Of Support Discussed With: Patient * CPR (Attempt to Resuscitate) Date Activated Date Inactivated Comments 10/20/2018 6:42 AM 10/21/2018 5:06 PM Question Answer Comments Code Status (Patient has no pulse and is not breathing): CPR (Attempt to Resuscitate) Medical Interventions (Patie nt has pulse or is breathing): Full Healthcare Agents on File Name Relationship Healthcare Agent Relationship Communication Toño Thomasman Spouse Health Care Surrogate Care Teams Petal Shaper Hand Relationship Specialty Start Date End Date Lucrecia Robert DO [address] [place] [address] PCP - General Family Medicine 11/09/18
--- OUTSIDE RECORDS SUMMARY | 2025-03-15 14:32 | XMS_ITS | Encounter Summary ---
[facility] Address [address] [place] [address] Care Team Providers Care Technical Maintenance Technician Name Role Phone Lucrecia Robert DO Primary Care Provider Reason for Visit * Reason Comments Med Refill Encounter Details Date Type Department Care Team (Late st Contact Info) Description 10/27/2020 Refill [facility] [address] [place] [address] Lucrecia Robert DO [address] [place], [place] [id number] Age-related osteoporosis without current pathological fracture Social History Tobacco Use Types Packs/Day Years [...] file 04/22 PHQ-2 Answer Date Recorded Retired Total Score 0 12/21/2019 Comments No Sex and Gender Information Value Date Recorded Sex Assigned at Not on file Legal Sex Female 8:39 AM EST Gender Identity Not on file Sexual Orientation Not on file documented as of this encounter Plan of Treatment Upcoming Encounters Date Type Department Care Team (Late st Contact Info) Description 06/10/2025 8:30 AM EDT Office Visit [facility] [address] [place], [place] [address] Lucrecia Robert DO [address] [place] [address] 12/12/2025 9:00 AM EDT Office Visit [facility] [address], [place] [address] Lucrecia Robert DO [address] [place] [address] documented as of this encounter Visit Diagnoses Diagnosis Age-related osteoporosis without current pathological fracture documented in this encounter Care Teams Technical Maintenance Technician Relationship Specialty Start Date End Date Lucrecia Robert DO [address] [place] [address] PCP - General Family Medicine 11/09/18 documented as of this encounter
--- OUTSIDE RECORDS SUMMARY | 2025-03-15 14:32 | XMS_ITS | Encounter Summary ---
[facility] Address [address] [place] [address] Care Team Providers Care Grommet Worker Name Role Phone Lucrecia Robert DO Primary Care Provider [phone] Reason for Referral * Diagnostic Imaging (Routine) - Authorized Specialty Diagnoses / Procedures Referred By Contac t Referred To Contact Diagnoses Abnormality of left breast on screening mammogram Procedures Mammo Diagnostic Digital Tomosynthesis Left With CAD Lucrecia Robert DO [address] [place] [address] Phone: tel: fax: [facility] [address] [place] [address] [place] [address] Phone: tel: fax: Referral ID Status Reason Start Date Expiration Date V isits Requested Visits Authorized [id number] Authorized 02/08/2025 05/10/2026 1 1 Encounter Details Date Type Department Care Team (Late st Contact Info) Description 12/18/2024 Results Follow-Up [facility] [address] [facility] [place] [id number] Lucrecia Robert DO [address], [place] [address] Social History Tobacco Use Types Packs/Day [...] on file documented as of this encounter Progress Notes * Lucrecia Robert DO - 02/08/2025 6:28 PM ESTAddended by: LUCRECIA ROBERT on: 02/08/2025 06:28 PM Modules accepted: Orders documented in this encounter Plan of Treatment Upcoming Encounters Date Type Department Care Team (Late st Contact Info) Description 06/10/2025 8:30 AM EDT Office Visit [facility] [address], [place] [address] Lucrecia Robert DO [address], [place] [address] 12/12/2025 9:00 AM EDT Office Visit [facility] [address], [place] [address] Lucrecia Robert DO [address], [place] [address] documented as of this encounter Results * Mammo Diagnostic Digital Tomosynthesis Left With CAD (02/06/2025) Anatomical Region Laterality Modality Breast Left Mammography Lucrecia Robert DO IM MAMMOGRAPHY ORDERABLES Final Result documented in this encounter Visit Diagnoses Diagnosis Abnormality of left breast on screening mammogram- Primary documented in this encounter Care Teams Grommet Worker Relationship Specialty Start Date End Date Lucrecia Robert DO [address] [place] [address] PCP - General Family Medicine 11/09/18 documented as of this encounter
--- OUTSIDE RECORDS SUMMARY | 2025-03-15 14:32 | XMS_ITS | Encounter Summary ---
[facility] Organization [facility] Address [address] [place] [address] Care Team Providers Care Stress Analyst Name Role Phone Lucrecia Robert DO Primary Care Provider [phone] Reason for Visit * Reason Comments Med Refill Encounter Details Date Type Department Care Team (Late st Contact Info) Description 03/11/2025 Refill [facility] [address] [facility] [place] [address] Lucrecia Robert DO [address] [place], [place] [id number] Anxiety Social History Tobacco Use Types Packs/Day Years [...] Description 06/10/2025 8:30 AM EDT Office Visit [facility] [address], [place] [address] Lucrecia Robert DO [address] [place] [address] 12/12/2025 9:00 AM EDT Office Visit [facility] [address] [place] [address] Lucrecia Robert DO [address] [place] [address] documented as of this encounter Visit Diagnoses Diagnosis Anxiety Anxiety state, unspecified documented in this encounter Care Teams Stress Analyst Relationship Specialty Start Date End Date Lucrecia Robert DO [address] [place] [address] PCP - General Family Medicine 11/09/18 documented as of this encounter
--- OUTSIDE RECORDS SUMMARY | 2025-03-15 14:32 | XMS_ITS | Encounter Summary ---
[facility] [address] [place] [address] Care Team Providers Care Marble Finisher Name Role Phone Lucrecia Robert DO Primary Care Provider Encounter Details Date Type Department Care Team (Late st Contact Info) Description 02/24/2025 Results Follow-Up [facility] [address] [facility] [place] [address] Lucrecia Robert DO [address] [facility] [address] [place], [place] [id number] Social History Tobacco Use Types Packs/Day Years [...] Description 06/10/2025 8:30 AM EDT Office Visit [facility] [address] [place] [address] Lucrecia Robert DO [address] [place] [address] 12/12/2025 9:00 AM EDT Office Visit [facility] [address] [place] [address] Lucrecia Robert DO [address] [place] [address] documented as of this encounter Visit Diagnoses Not on filedocumented in this encounter Care Teams Marble Finisher Relationship Specialty Start Date End Date Lucrecia Robert DO [address] [place] [address] PCP - General Family Medicine 11/09/18 documented as of this encounter
--- OUTSIDE RECORDS SUMMARY | 2025-03-15 14:32 | XMS_ITS | Clinical Summary ---
Author Organization [facility] Address [address] [place] [address] Care Team Providers Care Pricing Consultant Name Role Phone Rakesh Arevalo MD Primary Care Provider Family History Medical History Relation Name Comments [...] [facility]-Bone Density Scan 1956 [facility]-Depression Screening 1956 [facility]-Infant/Child/Adol SDOH Screenings 1956 [facility]-Obesity Intervention 01/05/1962 [facility]- SDOH Screenings 01/05/1974 [facility]-Adult SDOH Screenings 01/05/1974 [facility]-DTaP,Tdap,and Td Vaccines (1 - Tdap) 01/05/1975 CT Colonography 01/05/2001 Colonoscopy 01/05/2001 FIT-DNA 01/05/2001 FIT 01/05/2001 FOBT 01/05/2001 Sigmoidoscopy 01/05/2001 [facility]-Colorectal Cancer Screening 01/05/2001 [facility]-Breast Cancer Screening 01/05/2006 [facility]-Zoster Vaccines (1 of 2) 01/05/2006 [facility]-Medicare Annual Wellness (AWV) 05/21/2023 05/20/2022, 12/24/2020, 12/21/2019 [id number] Vaccine ( season) 2024 07/18/2020, 06/27/2020 [facility]-Influenza Vaccine (#1) 11/19/202411/16, 12/24/2020, 12/21/2019, Additional history exists [facility]-RSV Vaccine: 60+ Years or (1 - 1-dose 75+ series) 01/05/2031 [facility]-Hepatitis C Screening Completed 07/09/2019, 12/2018 [facility]-Pneumococcal Vaccine: 50+ Years Completed 05/20/2022, 05/02/2017 HPV Vaccines (No Doses Required) Completed [facility]-HIB Vaccines Aged Out No longer e [...] Hepatitis C Antibody (01/28/2019 3:59 PM EST) [place] Hepatitis C Ab NEGATIVE Reference Range: Negative SUNQUEST 01/28/2019 3:59 PM EST 01/28/2019 4:17 PM EST us Virgilio Mcgraw MD LAB BLOOD ORDERABLES Final Resul t SUNQUEST from Last 3 Months or Most Recently Relevant to Health Maintenance Insurance [employer] MEDIC[employer] Care Teams Pricing Consultant Relationship Specialty Start Date End Date Rakesh Arevalo MD [facility] [address] PCP - General 08/01/20
--- OUTSIDE RECORDS SUMMARY | 2025-03-15 14:32 | XMS_ITS | Encounter Summary ---
[facility] Address [address] [place] [address] Care Team Providers Care Walking Dragline Operator Name Role Phone Lucrecia Robert DO Primary Care Provider Encounter Details Date Type Department Care Team (Late st Contact Info) Description 02/24/2025 Results Follow-Up [facility] [address] [facility] [place] [address] Lucrecia Robert DO [address] [facility] [address] [place], [place] [id number] Social History Tobacco Use Types Packs/Day Years [...] Description 06/10/2025 8:30 AM EDT Office Visit [facility] [address] [place] [address] Lucrecia Robert DO [address] [place] [address] 12/12/2025 9:00 AM EDT Office Visit [facility] [address] [place] [address] Lucrecia Robert DO [address] [place] [address] documented as of this encounter Visit Diagnoses Not on filedocumented in this encounter Care Teams Walking Dragline Operator Relationship Specialty Start Date End Date Lucrecai Robert DO [address] [place] [address] PCP - General Family Medicine 11/09/18 documented as of this encounter
--- OUTSIDE RECORDS SUMMARY | 2025-03-15 14:32 | XMS_ITS | Encounter Summary ---
Author Organization [facility]: [address] Address [address] [place] [id number] Care Team Providers Care Mica Machine Operator Name Role Phone Lucrecia Robert DO Primary Care Provider Reason for Visit * Reason Comments Med Refill Encounter Details Date Type Department Care Team (Late st Contact Info) Description 04/14/2022 Refill [facility] [address] [facility] [place] [address] Lucrecia Robert DO [address] [place], [place] [id number] History of CVA (cerebrovascular accident) Social History Tobacco Use Types Packs/Day Years [...] Retired PHQ-9: Brief Depression Severity Measure Score 16 07/24/2021 Comments No Sex and Gender Information Value Date Recorded Sex Assigned at Not on file Legal Sex Female 8:39 AM EST Gender Identity Not on file Sexual Orientation Not on file documented as of this encounter Plan of Treatment Upcoming Encounters Date Type Department Care Team (Late st Contact Info) Description 06/10/2025 8:30 AM EDT Office Visit [facility] [address] [place] [address] Lucrecia Robert DO [address] [place] [address] 12/12/2025 9:00 AM EDT Office Visit [facility] [address] [place] [address] Lucrecia Robert DO [address] [place] [address] documented as of this encounter Visit Diagnoses Diagnosis History of CVA (cerebrovascular accident) Transient ischemic attack (TIA), and cerebral infarction without residual deficits documented in this encounter Additional Health Concerns Assessment Noted Time PHQ-2 Depression Total Score: 3 07/25/19 22 8:51 AM EDT documented as of this encounter Care Teams Mica Machine Operator Relationship Specialty Start Date End Date Lucrecia Robert DO [address] [place] [address] PCP - General Family Medicine 11/09/18 documented as of this encounter
--- OUTSIDE RECORDS SUMMARY | 2025-03-15 14:32 | XMS_ITS | Encounter Summary ---
[facility] Organization [facility] Address [address] [place] [address] Care Team Providers Care Clinical Assessment Manager Name Role Phone Lucrecia Robert DO Primary Care Provider [phone] Reason for Referral * Diagnostic Imaging (Routine) - Authorized Specialty Diagnoses / Procedures Referred By Contac t Referred To Contact Diagnoses Abnormal mammogram of left breast Procedures US breast left limited Lucrecia Robert DO [address] [place] [address] Phone: tel: fax: [facility] - OUTPT PHYSICAL THERAPY [address] [place] [address] Phone: tel: fax: Referral ID Status Reason Start Date Expiration Date V isits Requested Visits Authorized [id number] Authorized 03/06/2025 06/05/2026 1 1 Encounter Details Date Type Department Care Team (Late st Contact Info) Description 03/06/2025 Results Follow-Up [facility] [address] [facility] [place] [phone] Lucrecia Robert DO [address] [address] Social History Tobacco Use Types Packs/Day [...] 06/10/2025 8:30 AM EDT Office Visit [facility] [address] [place] [address] Lucrecia Robert DO [address] [place] [address] 12/12/2025 9:00 AM EDT Office Visit [facility] [address] [place] [address] Lucrecia Robert DO [address] [place] [address] Scheduled Orders Name Type Priority Associated Diagnoses Orde r Schedule US breast left limited Imaging Routine Abnormal mammogram of left breast Expected: 03/07/2025, Expires: 06/04/2026 documented as of this encounter Visit Diagnoses Diagnosis Abnormal mammogram of left breast- Primary documented in this encounter Care Teams Clinical Assessment Manager Relationship Specialty Start Date End Date Lucrecia Robert DO [address] [place] [address] PCP - General Family Medicine 11/09/18 documented as of this encounter
--- OUTSIDE RECORDS SUMMARY | 2025-03-15 14:32 | XMS_ITS | Encounter Summary ---
Author Organization [facility] Address [address] [place] [address] Care Team Providers Care Chief Station Engineer Name Role Phone Lucrecia Robert DO Primary Care Provider Reason for Visit * Reason Onset Date Comments Med Refill 02/06/2025 Encounter Details Date Type Department Care Team (Late st Contact Info) Description 02/06/2025 Refill [facility] [address] [place] [address] Lucrecia Robert DO [address] [facility] [address] Essential hypertension Social History Tobacco Use Types Packs/Day Years [...] on file documented as of this encounter Miscellaneous Notes * Telephone Encounter - Darlyn Hendricks RegSched Rep - 02/06/2025 10:38 AM EST Caller: Davida Romero Relationship: Self Best call back number: [phone] Requested Prescriptions: Requested Prescriptions Pending Prescriptions Disp Refills spironolactone (ALDACTONE) 25 MG tablet 90 tablet 3 Sig: Take 1 tablet by mouth Daily. Pharmacy where request should be sent: [id number] - [place], [place] - [address] [facility] - [phone] [facility] [phone] FX Last office visit with prescribing clinician: 12/10/2024 Last telemedicine visit with prescribing clinician: Visit date not found Next office visit with prescribing clinician: 06/10/2025 Additional details provided by patient: PATIENT IS OUT Does the patient have less than a 3 day supply: [x] Yes [] No Would you like a call back once the refill request has been completed: [] Yes [x] No If the office needs to give you a call back, can they leave a voicemail: [] Yes [x] No Nadine Orozco 02/06/25 10:39 EST documented in this encounter Plan of Treatment Upcoming Encounters Date Type Department Care Team (Late st Contact Info) Description 06/10/2025 8:30 AM EDT Office Visit [facility] [address] [address] Lucrecia Robert DO [address] [address] 12/12/2025 9:00 AM EDT Office Visit [facility] [address] [address] Lucrecia Robert DO [address] [place] [address] documented as of this encounter Visit Diagnoses Diagnosis Essential hypertension Unspecified essential hypertension documented in this encounter Care Teams Chief Station Engineer Relationship Specialty Start Date End Date Lucrecia Robert DO [address] [place] [address] PCP - General Family Medicine 11/09/18 documented as of this encounter
--- OUTSIDE RECORDS SUMMARY | 2025-03-15 14:32 | XMS_ITS | Encounter Summary ---
Author Organization [facility] Address [address] [place] [address] Care Team Providers Care Waist Fitter Name Role Phone Lucrecia Robert DO Primary Care Provider Encounter Details Date Type Department Care Team (Late st Contact Info) Description 02/04/2025 Telephone [facility] [address] [facility] [facility] [address] Lucrecia Robert DO [address] [facility] [address] Social History Tobacco Use Types [...] encounter Miscellaneous Notes * Telephone Encounter - Lucrecia Robert DO - 02/04/2025 6:25 PM EST Refilled. * Telephone Encounter - Bryce Araiza RegSched Rep - 02/04/2025 3:27 PM EST Franny calling to request refill on patient Amitripityline 50 MG tablet documented in this encounter Plan of Treatment Upcoming Encounters Date Type Department Care Team (Late st Contact Info) Description 06/10/2025 8:30 AM EDT Office Visit [facility] [address] [place] [place] [address] [place] [address] Lucrecia Robert DO [address] [place] [address] 12/12/2025 9:00 AM EDT Office Visit [facility] [address] [place] [address] Lucrecia Robert DO [address] [place] [address] documented as of this encounter Visit Diagnoses Diagnosis Chronic migraine without aura without status migrainosus, not intractable documented in this encounter Care Teams Waist Fitter Relationship Specialty Start Date End Date Lucrecia Robert DO [address] [place] [address] PCP - General Family Medicine 11/09/18 documented as of this encounter
== END 2025-03-15 23:59 | disposition home or self-care (01) ==
LOC: RAD 14:30
PROVIDERS: PCP Family Medicine; Visit Provider Family Medicine
DX: N60.12 Diffuse cystic mastopathy of left breast
CPT/HCPCS: 76641